=== PATIENT | male | born 1960 | race Caucasian/White ===

== ENCOUNTER 2024-03-19 05:54 | Inpatient (IN) ==
--- NOTE | 2024-02-06 10:08 | PAT Medication Instructions ---
Medication Instructions Date of Service February 06, 2024 Home Medications amlodipine 5 mg tablet 5 mg PO QAM celecoxib 100 mg capsule 100 mg PO QAM evolocumab 140 mg/mL subcutaneous syringe (Repatha Syringe) 140 mg subcut DIRECTED hydrocodone 10 mg-acetaminophen 325 mg tablet 1 tab PO Q6 PRN Pain lisinopril 40 mg tablet 40 mg PO QAM metformin 500 mg tablet 500 mg PO QAM cholecalciferol (vitamin D3) 25 mcg (1,000 unit) tablet (Vitamin D3) 25 mcg PO QAM ASK your surgeon for instructions celecoxib 100 mg capsule 100 mg PO QAM ASK your prescriber and surgeon evolocumab 140 mg/mL subcutaneous syringe (Repatha Syringe) 140 mg subcut DIRECTED DO NOT take the morning of surgery lisinopril 40 mg tablet 40 mg PO QAM metformin 500 mg tablet 500 mg PO QAM cholecalciferol (vitamin D3) 25 mcg (1,000 unit) tablet (Vitamin D3) 25 mcg PO QAM Take morning of surgery With a small sip of water, OTHERWISE NOTHING TO EAT OR DRINK AFTER MIDNIGHT: amlodipine 5 mg tablet 5 mg PO QAM hydrocodone 10 mg-acetaminophen 325 mg tablet 1 tab PO Q6 PRN Pain (if needed) Take evening before surgery hydrocodone 10 mg-acetaminophen 325 mg tablet 1 tab PO Q6 PRN Pain (if needed) Other Notes If you have any questions please call us at [phone] or [phone] or [phone] or [phone]
--- NOTE | 2024-02-12 11:49 | Anesthesiology Consultation ---
Date of Service February 12, 2024 Assessment & Plan (1) Encounter for pre-operative examination: - Check BSG DOS - Infectious disease screening: Per assessment on 02/12/24- No known recent infectious disease contacts or current infectious disease symptoms. - Patient acceptable risk for surgery pending surgeon-ordered PCP preop evaluation (Dr. Kaley Nava/[facility], appt 02/15). Chart Review Chart Review: Patient seen in Pre Admission Testing Teaching & Discussion Pre-Anesthesia Teaching/Discussion Notes: Instructed NPO after midnight before surgery,except medications with 15 cc of water. Medication instructions provided according to the PAT guidelines. History Surgery Operation Date: 03/19/24 07:45 Proposed Procedures p L3-S1 Decompression and Fusion, Spinal Cord Monitoring - Andrew Mata, Height/Weight Height: 5 ft 7.5 in Weight: 89.6 kg Allergies Allergy/AdvReac Type Severity Reaction Status Date / Time No Known Allergies Allergy Verified 02/05/24 10:23 Medications Home Medications Medication Instructions Recorded Confirmed Last Taken amlodipine 5 mg tablet 5 mg PO QAM 12/10/23 02/05/24 12/10/23 celecoxib 100 mg capsule 100 mg PO QAM 12/10/23 02/05/24 Unknown evolocumab 140 mg/mL subcutaneous 140 mg subcut DIRECTED 12/10/23 02/05/24 Unknown syringe (Repatha Syringe) hydrocodone 10 mg-acetaminophen 1 tab PO Q6 PRN Pain 12/10/23 02/05/24 Unknown 325 mg tablet lisinopril 40 mg tablet 40 mg PO QAM 12/10/23 02/05/24 Unknown metformin 500 mg tablet 500 mg PO QAM 12/10/23 02/05/24 Unknown cholecalciferol (vitamin D3) 25 25 mcg PO QAM 02/05/24 02/05/24 Unknown mcg (1,000 unit) tablet (Vitamin D3) Past Medical History Medical History Chronic back pain Hyperlipidemia Hypertension Lumbar radiculopathy Left drop foot, RLE "tingling" (chronic) Osteoarthritis Pre-diabetes Sleep apnea "Mild" Unable to tolerate machine Exercise / Class Metabolic Activity II 4-5 Yardwork/Stairs/Walk up hill (one FS: No CP, no SOB) Past Family History Family History Other No family history of adverse response to anesthesia Past Surgical History Surgical History H/O removal of cyst Multiple History of carpal tunnel release History of cholecystectomy History of colonoscopy S/P colon resection (02/2022) 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 - colon resection with bladder repair (Dr Jackson at [facility]) S/P epidural steroid injection Past Anesthesia History No Hx of Anesthesia Complications and No Family Hx of Anesthesia Complications History of PONV No Hx of PONV and No Hx of Motion Sickness Social History Smoking Status: Former smoker Do You Dip or Chew Tobacco: No (Quit ~3 weeks ago) Smoking End Date: Quit 2011 Hx Alcohol Use: Yes Alcohol type: beer alcohol intake frequency: a few times a week Hx Substance Use: No substance use type: does not use Review of Systems Patient denies chest pain, shortness of breath, dyspnea on exertion, fever, chills, cough, wheezing. Physical Exam Vital Signs BP 113/68 P 77 TEMP 98.2 SP02 97%RA RESP 18 Physical Full cervical extension range of motion. Full TMJ range of motion. TMD > 3.5 finger breaths Mallampati Score II Dentition: missing molars Lungs: clear throughout to auscultation Cardiac: regular rate and rhythm, no murmurs noted Spine: normal Carotid arteries: negative bruit Extremities: no LE edema Short neck Lab Results Anesthesia Preop Results Results Anesthesia Widget: WBC 5.93 K/ul (4.8-10.8) 02/12/24 Hgb 14.1 g/dl (14.0-18.0) 02/12/24 Hct 42.3 % (42.0-52.0) 02/12/24 Plt 173 K/uL (130-400) 02/12/24 Na 140 mmol/L (136-145) 02/12/24 K 4.0 mmol/L (3.5-5.1) 02/12/24 Cl 107 mmol/L (98-107) 02/12/24 CO2 25 mmol/L (21-32) 02/12/24 BUN 16 mg/dl (6-23) 02/12/24 Creat 0.92 mg/dl (0.6-1.4) 02/12/24 Glucose Level 172 mg/dl (70-99(Fasting)) H 02/12/24 PT 10.4 Seconds (9.0-12.0) 02/12/24 PTT 26 Seconds (21-31) 02/12/24 INR 1.0 (0.9-1.1) 02/12/24 HA1c 6.5 % (4.5-5.6) H 02/12/24 Urine Color Yellow 02/12/24 Urine Appearance Clear (Clear) 02/12/24 Urine pH 7.0 (4.5-7.5) 02/12/24 Urine Specific Mentcle 1.022 (1.000-1.030) 02/12/24 Urine Protein Negative (Negative) 02/12/24 Urine Glucose (UA) Negative (Negative) 02/12/24 Urine Ketones Negative (Negative) 02/12/24 Urine Blood Negative (Negative) 02/12/24 Urine Nitrite Negative (Negative) 02/12/24 Urine Bilirubin Negative (Negative) 02/12/24 Urine Urobilinogen Negative (Negative) 02/12/24 Urine Leukocyte Esterase Negative (Negative) 02/12/24 Blood Type O Negative 02/12/24 Antibody Screen NEGATIVE 02/12/24 Testing Electrocardiogram Date: 02/12/24 SR with marked sinus arrhythmia at 68bpm. "Otherwise normal ECG" Chest X-Ray Date: 02/12/24 FINDINGS: The lungs are clear. Cardiomediastinal silhouette is within normal limits. No acute osseous abnormalities. No pleural effusion or pneumothorax. Right upper quadrant cholecystectomy clips are noted. IMPRESSION: No acute cardiopulmonary findings.
[2024-03-19] MEDS ORDERED: LR 15ML/HR IV SCH (06:00)
[2024-03-19] MEDS: LACTATED RINGER'S 1,000 ML IV SCH (06:20)
[2024-03-19] MEDS: LR 60ML/HR IV SCH (06:29)
[2024-03-19] MEDS: CeleBREX 200 MG CAP PO SCH (06:33)
[2024-03-19] MEDS: GABAPENTIN 600 MG DOSE PO SCH (06:33)
[2024-03-19] MEDS: ACETAMINOPHEN 500 MG TAB PO SCH (06:33)
[2024-03-19] MEDS ORDERED: ONDANSETRON INJ 2 MG/ML 2 ML VIAL IV PRN ×2 (06:48→13:23)
[2024-03-19] MEDS ORDERED: HYDROmorphone INJ 1 MG/ML SYRINGE IV PRN ×2 (06:48→13:23)
[2024-03-19] MEDS ORDERED: ATROPINE SULFATE 0.1 MG/ML 10ML SYR IV PRN (06:48)
[2024-03-19] MEDS ORDERED: ePHEDrine sulfate 50 MG/ML AMP IV PRN (06:48)
--- NOTE | 2024-03-19 06:49 | Anesthesiology Consultation ---
Date of Service March 19, 2024 Assessment & Plan Chart Review Chart Review: Acceptable Risk for Surgery Consults Requested none ASA ASA3 Proposed Anesthesia Anesthesia Type: General History Surgery Operation Date: 03/19/24 07:45 Proposed Procedures p L3-S1 Decompression and Fusion, Spinal Cord Monitoring - Andrew Mata DO Height/Weight Height: 5 ft 7.5 in Weight: 87.7 kg Allergies Allergy/AdvReac Type Severity Reaction Status Date / Time No Known Allergies Allergy Verified 03/19/24 06:20 Medications Home Medications Medication Instructions Recorded Confirmed Last Taken amlodipine 5 mg tablet 5 mg PO QAM 12/10/23 03/19/24 03/18/24 06:00 celecoxib 100 mg capsule 100 mg PO QAM 12/10/23 03/19/24 2 Days Ago ~03/17/24 evolocumab 140 mg/mL subcutaneous 140 mg subcut DIRECTED 12/10/23 03/19/24 2 Weeks Ago syringe (Repatha Syringe) ~03/05/24 hydrocodone 10 mg-acetaminophen 1 tab PO Q6 PRN Pain 12/10/23 03/19/24 03/18/24 06:00 325 mg tablet lisinopril 40 mg tablet 40 mg PO QAM 12/10/23 03/19/24 03/18/24 06:00 metformin 500 mg tablet 500 mg PO QAM 12/10/23 03/19/24 03/18/24 06:00 cholecalciferol (vitamin D3) 25 25 mcg PO QAM 02/05/24 03/19/24 03/18/24 06:00 mcg (1,000 unit) tablet (Vitamin D3) Active Medications Generic Name Dose Route Start Last Admin Trade Name Julianq PRN Reason Stop Dose Admin Acetaminophen 1,000 mg 03/19/24 06:00 03/19/24 06:33 Acetaminophen 500 Mg Tab PO 03/19/24 18:00 1,000 mg PREOP DAT Administration Celecoxib 200 mg 03/19/24 06:00 03/19/24 06:33 Celebrex 200 Mg Cap PO 03/19/24 18:00 200 mg PREOP DAT Administration Gabapentin 600 mg 03/19/24 06:00 03/19/24 06:33 Gabapentin 600 Mg Dose PO 03/19/24 18:00 600 mg PREOP DAT Administration Lactated Ringer's 1,000 mls @ 15 mls/hr 03/19/24 06:00 03/19/24 06:20 Lr IV 03/20/24 05:59 15 mls/hr .Q24H DAT Administration Lactated Ringer's 1,000 mls @ 60 mls/hr 03/19/24 06:00 03/19/24 06:29 Lr IV 03/19/24 22:39 Not Given .[id number] DAT NPO Date Last Intake of Fluids: 03/18/24 Time Last Intake of Fluids: 21:00 Date Last Intake of Solids: 03/18/24 Time Last Intake of Solids: 19:00 Past Medical History Medical History Osteoarthritis Chronic back pain Lumbar radiculopathy Left drop foot, RLE "tingling" (chronic) Pre-diabetes Hyperlipidemia Hypertension Sleep apnea "Mild" Unable to tolerate machine Exercise / Class Metabolic Activity II 4-5 Yardwork/Stairs/Walk up hill Past Family History Family History Other No family history of adverse response to anesthesia Past Surgical History Surgical History History of carpal tunnel release H/O removal of cyst Multiple History of cholecystectomy S/P colon resection (02/2022) 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 - colon resection with bladder repair (Dr Jackson at [facility]) History of colonoscopy S/P epidural steroid injection Past Anesthesia History No Hx of Anesthesia Complications History of PONV No Hx of PONV Social History Smoking Status: Never smoker Do You Dip or Chew Tobacco: No (Quit ~3 weeks ago) Smoking End Date: Quit 2011 Hx Alcohol Use: Yes Alcohol type: beer alcohol intake frequency: a few times a week Hx Substance Use: No substance use type: does not use Review of Systems ROS Unobtainable: All systems reviewed & are unremarkable except as noted in Subjective Physical Exam Vital Signs Last Vital Signs Temp 36.7 C 03/19/24 06:08 Pulse 66 03/19/24 06:08 Resp 20 03/19/24 06:08 BP 131/88 03/19/24 06:08 Pulse Ox 97 03/19/24 06:08 O2 Del Method Room Air 03/19/24 06:08 Constitutional + obese chronic back pain ENMT Thyromental Distance: < 3.5 Finger Breadths Mallampati Class: IV Anterior airway Neck + facial hair Respiratory normal respiratory effort Auscultation: lungs clear to auscultation bilaterally Cardiovascular Rate/Rhythm: regular rate Neurologic moves all extremities Testing Laboratory Results 03/19/24 06:33 POC Glucose 151 H Electrocardiogram Date: 02/12/24 SR with marked sinus arrhythmia at 68bpm. "Otherwise normal ECG" Chest X-Ray Date: 02/12/24 FINDINGS: The lungs are clear. Cardiomediastinal silhouette is within normal limits. No acute osseous abnormalities. No pleural effusion or pneumothorax. Right upper quadrant cholecystectomy clips are noted. IMPRESSION: No acute cardiopulmonary findings.
[2024-03-19] MEDS ORDERED: DEXAMETHASONE SOD INJ 4 MG/ML VIAL ONE (06:58)
[2024-03-19] MEDS ORDERED: ONDANSETRON INJ 2 MG/ML 2 ML VIAL ONE (06:58)
[2024-03-19] MEDS ORDERED: GLYCOPYRROLATE 0.2 MG/ML VIAL ONE (06:58)
[2024-03-19] MEDS ORDERED: ROCURONIUM BROMIDE 10 MG/ML 5 ML VIAL IV ONE (06:58)
[2024-03-19] MEDS ORDERED: LIDOCAINE 2% 2 ML VIAL/AMP(20MG/ML) INFIL ONE (06:58)
[2024-03-19] MEDS ORDERED: PROPOFOL IV EMULSION 10 MG/ML 20 ML VIAL IV ONE (06:58)
[2024-03-19] MEDS ORDERED: MIDAZOLAM HCL 1 MG/ML 2ML VIAL ONE (06:59)
[2024-03-19] MEDS ORDERED: fentaNYL citrate PF 100 MCG/2 ML VIAL ONE ×2 (06:59→10:35)
[2024-03-19] MEDS ORDERED: SUGAMMADEX SODIUM 200 MG/2 ML VIAL IV ONE (07:02)
--- NOTE | 2024-03-19 07:43 | History & Physical Bridge Note ---
Date of Service March 19, 2024 History & Physical Bridge Note I have examined the patient, reviewed the History & Physical and in the interval since the performance of the History & Physical I have noted the following changes of clinical significance: no changes noted
--- NOTE | 2024-03-19 07:44 | History & Physical Report ---
Date of Service March 19, 2024 Assessment & Plan (1) Lumbosacral spondylosis with radiculopathy: Plan: L3-S1 decompression and fusion History of Present Illness Chief Complaint: Back and bilateral leg pain Primary Care Provider: Kaley Nava This is a 64-year-old male who presents with chronic persistent back and bilateral leg pain after failing course of nonoperative care is here for surgical intervention. Allergies Allergy/AdvReac Type Severity Reaction Status Date / Time No Known Allergies Allergy Verified 03/19/24 06:20 Home Medications Medication Instructions Recorded Confirmed Type amlodipine 5 mg tablet 5 mg PO QAM 12/10/23 03/19/24 History celecoxib 100 mg capsule 100 mg PO QAM 12/10/23 03/19/24 History evolocumab 140 mg/mL subcutaneous 140 mg subcut DIRECTED 12/10/23 03/19/24 History syringe (Repatha Syringe) hydrocodone 10 mg-acetaminophen 1 tab PO Q6 PRN Pain 12/10/23 03/19/24 History 325 mg tablet lisinopril 40 mg tablet 40 mg PO QAM 12/10/23 03/19/24 History metformin 500 mg tablet 500 mg PO QAM 12/10/23 03/19/24 History cholecalciferol (vitamin D3) 25 25 mcg PO QAM 02/05/24 03/19/24 History mcg (1,000 unit) tablet (Vitamin D3) Past Med/Surg History Problem List (Updated 03/19/24 @ 07:43 by Andrew Mata DO) Lumbosacral spondylosis with radiculopathy Medical History Osteoarthritis Chronic back pain Lumbar radiculopathy Left drop foot, RLE "tingling" (chronic) Pre-diabetes Hyperlipidemia Hypertension Sleep apnea "Mild" Unable to tolerate machine Surgical History History of carpal tunnel release H/O removal of cyst Multiple History of cholecystectomy S/P colon resection (02/2022) 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 - colon resection with bladder repair (Dr Jackson at [facility]) History of colonoscopy S/P epidural steroid injection Family History Other No family history of adverse response to anesthesia Social History Smoking Status: Never smoker Tobacco Type: Smokeless Tobacco (Dip or Chew) Smoking End Date: Quit 2011; Second Hand Exposure: No; Do You Dip or Chew Tobacco: No (Quit ~3 weeks ago); Tobacco Cessation Education Requested by Patient: No Hx Alcohol Use: Yes Alcohol type: beer Hx Substance Use: No Preferred Language: Ukrainian Communication Ability: Effective 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
[2024-03-19] MEDS: ceFAZolin 2000MG 2,000 MG/15 ML SYR IV SCH ×2 (07:51→17:45)
[2024-03-19] MEDS: BUPIVACAINE/EPINEPHRINE 0.25% 1:200,000 30 ML VIAL ONE ×2 (08:17→08:41)
[2024-03-19] MEDS ORDERED: PHENYLEPHRINE 100MCG/ML 5ML SYR ONE ×2 (08:59→09:00)
[2024-03-19] MEDS ORDERED: ePHEDrine sulfate 50 MG/5 ML SYR ONE (08:59)
[2024-03-19] MEDS ORDERED: PHENYLEPHRINE HCL 10 MG/ML VIAL ONE (09:56)
[2024-03-19] MEDS: ceFAZolin 330 MG/ML 1 GM VIAL ONE (10:22)
[2024-03-19] MEDS: FLOSEAL HEMOSTATIC MATRIX 10ML TOP ONE (10:23)
--- NOTE | 2024-03-19 10:44 | Fluoroscopy Report ---
FL lumbar spine 2-3V CLINICAL HISTORY: L3-S1 DECOMPRESSION/FUSION COMPARISON STUDY: MRI lumbar spine 12/10/2023 FLUOROSCOPY TIME: 32.6 seconds FLUOROSCOPY IMAGES: 2 EXPOSURE DOSE: 29.57 mGy FINDINGS: 4 level posterior interbody olivia and screw fusion with discectomy labeled the L3-S1 levels. Note that the images were submitted following completion of the surgery. On the lateral image there i s a partially imaged radiodense structure anterior to the L5-S1 disc space suggestive of a surgical s ponge, not seen on the additional view. IMPRESSION: Fluoroscopic assistance as above. ACT 112: Negative or not required by law. Electronically signed by: Dariel Marin M.D. 03/19/2024 10:42 AM
--- NOTE | 2024-03-19 10:53 | Operative Report ---
Post Operative Report Pre & Post Diagnosis Operation Date: 03/19/24 07:45 Pre-Op Diagnosis: #1 lumbar spondylolisthesis L4-5. #2 lumbar spondylosis with radiculopathy. #3 lumbar spinal stenosis with neurogenic claudication. Post-Op Diagnosis: Same I identified the patient and participated in the time-out.: Yes Procedure Operation Date: 03/19/24 07:45 Actual Procedures #1 lumbar decompression bilateral medial facetectomies and foraminotomies L2-L3, L3-L4, L4-5 and L5-S1. #2 posterior spinal fusion L3-S1. #3 placement posterior segmental instrumentation L3-S1. #4 interbody fusion L3-L4, L4-5 and L5-S1. #5 placement of Spira 13 x 26 mm at L3-L4, 12 x 26 mm x 2 at L4-5, 14 x 26 mm x 2 at L5-S1. #6 placement of locally harvested morselized autograft and posterior gutters per #7 placement infuse collagen sponge combined with Koros in the posterior lateral gutters and os design interbody space. #8 application of versa wrap of the exposed dura. Surgeon Andrew Mata, Garden Center Manager None Estimated Blood Loss 200 Findings Consistent with Post-Op Diagnosis Specimens None Indications This is a 64-year-old male who presents publish diagnosis of failed course of nonoperative care is here for surgical invention. Description of Procedure Patient was met with identified informed consent obtained. Patient was then taken to the operative suite underwent intubation placed in a prone position the Waldo able topical Matteo frame. All bony prominences well-padded eyes inspected to ensure no external pressure placed upon the. This point lumbar spine was prepped and draped in normal sterile fashion. Sharp dissection with the assistance bradycardia form down to and exposing the lamina transverse processes of L3 L4-5 and sacral ala bilaterally. From caudal to cephalad fashion complete laminectomy of L5 was performed noting bilateral pars defect and severe foraminal disease was addressed. Then formed a complete laminectomy of L4 with bilateral medial facetectomies and foraminotomies followed by complete laminectomy of L3 with bilateral male facetectomies and foraminotomies and lastly partial laminectomy L2 with bilateral medial facetectomies addressing all subarticular stenosis. Pedicle screws were then placed in L3-L4-L5 and S1 levels bilaterally with assistance of fluoroscopy in the proper size olivia contoured and placed. By way of transforaminal approach on the left discectomy of L5-S1 was performed. Endplates guided to subcortical bleeding bon e and a 14 x 26 mm spiral cage filled with os designed tapped in position. Then proceeded to the right transforaminal region L5-S1. Again discectomy performed endplates guarded to subcortical bleeding bone and a second 14 x 26 mm Spira cage filled with os designed tapped in position. Then proceeded to the L4-L5 transforaminal region on the right. Again discectomy performed endplates guided to subcortical bleeding bone and a 12 x 26 mm Spira cage filled with os designed tapped into position. Then proceeded to the left transforaminal region at L4-5. A discectomy performed endplates guided to subcortical bleeding bone and a second 12 x 26 mm Spira cage filled with os designed tapped into position. Lastly I proceeded to the left transforaminal region at L3-L4. A complete discectomy was performed. Endplates guided to subcortical bleeding bone and a 13 x 26 mm Spira cage filled with os design tapped into position. The rods then compressed locked in final position bilaterally. The transverse processes of L3-L4-L5 and the sacral ala burred to subcortical bleeding bone. Infuse collagen sponge, with Koros and local autograft placed in posterior lateral gutters. Versa wrap placed over the exposed dura. 15 round MATHEW drain inserted. The incision was then closed with 1 Vicryl the fascia 2-0 Vicryl subcutaneously and 4 Monocryl for final skin closure. Steri-Strips sterile dressing placed. Patient waken taken to PACU in stable condition. Im ordering 20 grams of Triple Siletz Collagen Powder ([facility] [id number]) to treat an incision wound that was caused by a spine procedure. The incision is approximately 2 cm(W) x 4 cm(L) into the joint (D) in size and is a full thickness wound. Triple Siletz collagen comes in 1 gram packets so 20 packets were ordered. Given the size of the wound, with light to moderate exudate I chose to order a 20 day supply. The patient will be provided instructions for proper application of the collagen wound kit. The patient will be asked to apply the collagen powder daily and then cover it with sterile dressings dispensed. Collagen was selected as I expect the collagen to attract monocytes and fibroblasts, act as a sacrificial substrate for MMPs, and ultimately proved a matrix for tissue and vessel growth. The collagen will act as a primary dressing in this scenario. It is medically necessary for proper healing of these wounds to improve bioavailability and contact with each wound surface, this is also to help prevent infection of wounds and promote healing ultimately leading to a better healing outcome and limit the risk of infection. I attest to the content of the Intraoperative Record and any orders documented therein. Any exceptions are noted below.
[2024-03-19] MEDS: fentaNYL citrate PF 100 MCG/2 ML VIAL IV PRN (11:30)
--- NOTE | 2024-03-19 12:22 | Anesthesiology Progress Note ---
Date of Service March 19, 2024 Anesthesia Post Procedure Vital Signs Vital Signs: Temp Pulse Resp BP Pulse Ox O2 Del Method O2 Flow Rate 03/19/24 12:10 99 H 12 133/75 95 Room Air 03/19/24 12:00 85 12 99/74 L 95 Room Air 03/19/24 11:50 115 H 13 120/82 96 Room Air 03/19/24 11:40 99 H 12 121/75 93 Room Air 03/19/24 11:30 102 H 18 132/78 100 Room Air 03/19/24 11:20 100 H 16 107/79 100 Oxymask 3 03/19/24 11:10 114 H 15 153/74 H 100 Oxymask 6 03/19/24 11:01 36.1 C L 81 12 111/54 L 98 Oxymask 6 03/19/24 06:08 36.7 C 66 20 131/88 97 Room Air Pain Intensity Lower Back: Pain Intensity: 5 Transfer of Care Handoff Completed per policy Notes Mental Status: alert / awake / arousable Patient Amnestic to Procedure: Yes Nausea / Vomiting: adequately controlled Pain: adequately controlled Airway Patency, RR, SpO2: stable & adequate BP & HR: stable & adequate Hydration State: stable & adequate Anesthetic Complications: no major complications apparent and Pt Satisfied with anesthetic care Notes: moves all extremities
[2024-03-19] MEDS ORDERED: MAGNESIUM HYDROXIDE SUSP 30 ML UDC PO PRN (13:23)
[2024-03-19] MEDS ORDERED: LORazepam 0.5 MG TAB PO PRN (13:23)
[2024-03-19] MEDS ORDERED: FAMOTIDINE 20 MG TAB PO PRN (13:23)
[2024-03-19] MEDS ORDERED: DO NOT ADMINISTER FLU VACCINE PRN (13:23)
[2024-03-19] MEDS ORDERED: ONDANSETRON 4 MG OD TAB PO PRN (13:23)
[2024-03-19] MEDS ORDERED: METOCLOPRAMIDE HCL INJ 5 MG/ML 2 ML VIAL IV PRN (13:23)
[2024-03-19] MEDS ORDERED: KETOROLAC 30 MG/ML VIAL IV PRN (13:23)
[2024-03-19] MEDS ORDERED: SOD PHOSPHATE/SOD BIPHOSPHATE ENEMA 132 ML BTL PR PRN (13:23)
[2024-03-19] MEDS ORDERED: PROMETHAZINE 12.5 MG/50.5 ML BAG IV PRN (13:23)
[2024-03-19] MEDS ORDERED: ALUMINUM/MAGNESIUM SUSP 30 ML UDC PO PRN (13:23)
[2024-03-19] MEDS ORDERED: PHARMACY GLYCEMIC MGMT CONSULT PRN (13:23)
[2024-03-19] MEDS ORDERED: bisacodyL 10 MG SUPP PR PRN (13:23)
[2024-03-19] MEDS ORDERED: DO NOT ADMINISTER PNEUMOCOCCAL VACCINE PRN (13:23)
[2024-03-19] MEDS ORDERED: diphenhydrAMINE Capsule 25 MG CAP PO PRN (13:23)
[2024-03-19] MEDS ORDERED: NALOXONE HCL 0.4 MG/1 ML VIAL/CARP IV PRN (13:23)
[2024-03-19] MEDS ORDERED: traMADol HCL 50 MG TABLET PO PRN (13:23)
[2024-03-19] MEDS ORDERED: hydrOXYzine HCl 25 MG TAB PO PRN (13:23)
[2024-03-19] MEDS ORDERED: HYDROmorphone INJ 0.5 MG/0.5 ML SYR IV PRN (13:23)
[2024-03-19] MEDS ORDERED: ACETAMINOPHEN 1,000 MG/100 ML VIAL IV PRN (13:23)
[2024-03-19] MEDS ORDERED: LORazepam 2 MG/1 ML VIAL IV PRN ×2 (13:23→15:32)
[2024-03-19] MEDS ORDERED: DEXTROSE 50% 50 ML SYRINGE IV PRN (14:15)
[2024-03-19] MEDS ORDERED: CARBOHYDRATES FOR HYPOGLYCEMIA PO PRN (14:15)
[2024-03-19] MEDS ORDERED: GLUCOSE 10 TAB/TUBE PO PRN (14:15)
[2024-03-19] MEDS ORDERED: GLUCOSE 40% GEL 15 GM TUBE PO PRN (14:15)
[2024-03-19] MEDS ORDERED: GLUCAGON FOR INJ 1 MG VIAL SQ PRN (14:15)
--- NOTE | 2024-03-19 14:21 | Pharmacy Report ---
Pharmacy Glycemic Short Note 2 - Date of Service March 19, 2024 - Glycemic Short BSG Results (Last 24 hours): 03/19/24 03/19/24 06:33 11:04 POC Glucose 151 H 208 H OUTPATIENT ANTIDIABETIC REGIMEN: * Metformin 500mg po daily HbA1c: 6.5% on 02/12/24 ASSESSMENT: * 64 year old male admitted today for spinal decompression and fusion. He is a type 2 diabetic who is well controlled outpatient on only an oral agent. Pharmacy has been consulted post op for glycemic control. * Preop BSG was 151mg/dL and postop BSG was 208mg/dL. He did receive dexamethasone preop. Lantus 20 units x 1 has been ordered for this afternoon and a weight based bolus insulin scale with a stress of 2 was started. PLAN FOR INPATIENT GLYCEMIC CONTROL: * Hold outpatient oral diabetes medications * Basal insulin * Lantus 20 units SQ x 1 today * Bolus insulin * NovoLog per scale ACHS or Q6hrs while NPO * Goal Range: Low 120 mg/dL - High 150 mg/dL * Correction Factor: 25 mg/dL/unit * Nutritional / Prandial insulin per carb ratio of 1 unit per 9 grams CHO consumed
[2024-03-19] MEDS: INSULIN ASPART PER UNIT CHARGE SC SCH (14:37)
[2024-03-19] MEDS: oxyCODONE HCL IR 5 MG TAB (IMMEDIATE RELEASE) PO PRN (14:37)
[2024-03-19] MEDS: LANTUS PER UNIT CHARGE SC ONE (14:38)
--- NOTE | 2024-03-19 14:51 | Hospitalist Consultation ---
Date of Consultation March 19, 2024 Assessment & Plan (1) Lumbosacral spondylosis with radiculopathy: (2) Hyperlipidemia: (3) Hypertension: (4) Sleep apnea: (5) Pre-diabetes: Plan Lumbar Radiculopathy - POD # 0, L2-S1 decompression/fusion - Pain management, bowel regimen and DVT ppx per the primary team - PT/OT consults, pt is planning on outpatient therapy - Follow am CBC to monitor for acute blood loss HTN HLD - Continue home medications including lisinopril, amlodipine Sleep Apnea - Pt reports as mild, does not wear CPAP Diabetes - last A1C 6.5 on 02/15/24, previously prediabetic - Continue metformin daily - Discussion regarding weight loss and activity level was held at length at bedside with his jennifer present. Alcohol abuse - Drink 6-8 beers daily at baseline, mixes liquor drinks including bloody seema x multiple drinks - last drink was on [place] - Will place on AWSS, he has no intention to quite drinking so would not start on gabapentin taper - Discussed thiamine, folic acid and MVI daily at baseline and he is agreeable to this. DVT ppx: teds, scds Lines: PIV x 1 FEN/GI: HH/DM diet, advance as tolerated, CODE: Full Dispo: From home, likely to remain in the hospital x 1-2 days A total of 45 minutes were spent with greater than 50% of that time face to face with the patient, personally reviewing all current laboratories, imaging studies, past medication reconciliation, outpatient chart review, and discussion with specialists to collaborate care for the patient with attending. Please see attending documentation for corrections and/or additions. Supervising Physician Co-Signing Physician Notes Attending Addendum: Case reviewed with the advanced practitioner. I have personally performed a history and physical examination on the patient. I have reviewed the advanced practitioner's documentation on the date of service referenced in note, and I agree with, and take responsibility for the plan of care. please refer to her notes for full details patient seen and examined, records reviewed by myself as well s/p L2-S1 decompression/fusion - stable overall Alcoholism - Alcohol Withdrawal Protocol with PRN Lorazepam reassess in AM may need Gabapentin taper monitor closely other diagnoses and plan of care as per advanced practitioner's notes Devyn Hernandez MD History of Present Illness Reason for Consultation: Medical management Requesting Physician: Dr. Mata Attending Physician: Andrew Mata, DO History of Present Illness This is a 64 yo M with PMHx of Prediabetes, HTN, HLD, mild sleep apnea and does not wear CPAP, osteoarthritis, chronic back pain and lumbar radiculoathy who presented today for elective Lumbar decompression fusion by Dr. aMta involving medial facetectomies and foraminotomies L2-L3, L3-L4, L4-5 and L5-S1. Patient is doing well at this point. His fiance is present with him at bedside. He reports that his pain is mild, "feels like he has been run over by a truck" after having surgery this morning. He denies any peripheral numbness, can move his toes, and legs without difficulty. He admits to having history of claustrophobia and states that he feels worse whenever the table blankets and SCDs are all on at the same time. He reports that he typically drinks 6-8 beers per day, and on he had at least this much beer along with mixing bloody Seema drinks all through the day. We discussed alcohol reduction and he has no desire to quit drinking. He states that he has previously lost weight without cutting his alcohol and cutting other things such as bread, pasta, baked goods. We discussed nutrient dense foods versus empty calories as associated with beer. Family member present at bedside supports reduction of alcohol intake however the patient does not seem interested at this point. We also discussed wound healing, adequate protein intake, and improvement with reduction of alcohol. Hearing that he is diabetic is a new information today, previously he was prediabetic, but he is taking metformin 500 mg daily. Allergies Allergy/AdvReac Type Severity Reaction Status Date / Time No Known Allergies Allergy Verified 03/19/24 06:20 Home Medications Medication Instructions Recorded Confirmed Type amlodipine 5 mg tablet 5 mg PO QAM 12/10/23 03/19/24 History celecoxib 100 mg capsule 100 mg PO QAM 12/10/23 03/19/24 History evolocumab 140 mg/mL subcutaneous 140 mg subcut DIRECTED 12/10/23 03/19/24 History syringe (Repatha Syringe) hydrocodone 10 mg-acetaminophen 1 tab PO Q6 PRN Pain 12/10/23 03/19/24 History 325 mg tablet lisinopril 40 mg tablet 40 mg PO QAM 12/10/23 03/19/24 History metformin 500 mg tablet 500 mg PO QAM 12/10/23 03/19/24 History cholecalciferol (vitamin D3) 25 25 mcg PO QAM 02/05/24 03/19/24 History mcg (1,000 unit) tablet (Vitamin D3) oxycodone 5 mg tablet 5 mg PO Q6H PRN pain #30 tabs 03/19/24 03/19/24 Rx tramadol 50 mg tablet 50 mg PO Q6H PRN pain, moderate 03/19/24 03/19/24 Rx #30 tabs Patient History Medical History Osteoarthritis Chronic back pain Lumbar radiculopathy Left drop foot, RLE "tingling" (chronic) Pre-diabetes Hyperlipidemia Hypertension Sleep apnea "Mild" Unable to tolerate machine Surgical History History of carpal tunnel release H/O removal of cyst Multiple History of cholecystectomy S/P colon resection (02/2022) 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 - colon resection with bladder repair (Dr Jackson at [facility]) History of colonoscopy S/P epidural steroid injection Family History Other No family history of adverse response to anesthesia Social History Smoking Status: Never smoker Tobacco Type: Smokeless Tobacco (Dip or Chew) Smoking End Date: Quit 2011; Second Hand Exposure: No; Do You Dip or Chew Tobacco: No (Quit ~3 weeks ago); Tobacco Cessation Education Requested by Patient: No Hx Alcohol Use: Yes Alcohol type: beer Hx Substance Use: No Preferred Language: [place] Communication Ability: Effective Counseling Psychologist Required: No Beliefs That Will Affect Care: None Current Living Situation: Significant Other Other Information That Helps Us Care for You: No Feels Safe at Home: Yes Safety Concerns: Feels Safe At This Time Assistive Devices: None Review of Systems Review of Systems: Constitutional: No fever, sweats or chills Eyes: No diplopia, no worsening or blurred vision ENT: normal hearing, no trouble swallowing Respiratory: No cough, sputum, dyspnea at rest or on exertion Cardiovascular: No chest pain, tightness or palpitations Abdomen: No pain, nausea, vomiting, diarrhea or constipation Back: Status post lumbar spine decompression surgery, soreness Musculoskeletal: No joint pain, calf pain, swelling Neurologic: No weakness, numbness/tingling, + previous left-sided foot drop slightly improved status post surgery Psychiatric: No anxiety or depression Skin: No rash or itch Physical Exam Physical Exam: General: awake, alert, no apparent distress, white male Head: Normocephalic, atraumatic ENT: PERRL, EOMI, no pharyngeal exudate, mucous membranes moist Chest: Clear to auscultation, on room air, no adventitious breath sounds Cardiac: Regular rate and rhythm, no murmur, no JVD, normal peripheral pulses, good capillary refill Abdominal: NABS x 4 quadrants, soft, nondistended, nontender to palpation, no rebound or guarding Back: Dressing C/D/I, MATHEW drain with serosanginous bloody outs Extremities: Normal inspection, no peripheral edema or erythema, calfs nontender to palpation Psych: Normal mood and affect Neuro: AAO x 3, strength intact bilaterally and rated 5/5, no motor deficits, speech is clear, no peripheral sensory deficits Results & Data Results & Data Vital Signs (Past 12 Hours) Vital Signs Temp Pulse Pulse Resp BP Pulse Ox O2 Del Method 03/19/24 14:31 36.4 C L 115 H 16 146/82 H 97 Room Air 03/19/24 14:00 36.8 C 99 H 16 139/84 97 Room Air 03/19/24 13:30 36.4 C L 109 H 16 128/90 96 Room Air 03/19/24 13:00 99 H 20 124/83 97 Room Air 03/19/24 12:45 113 H 16 118/86 96 Room Air 03/19/24 12:30 110 H 16 127/85 95 Room Air 03/19/24 12:20 36.4 C L 105 H 13 107/73 96 Room Air 03/19/24 12:10 99 H 12 133/75 95 Room Air 03/19/24 12:00 85 12 99/74 L 95 Room Air 03/19/24 11:50 115 H 13 120/82 96 Room Air 03/19/24 11:40 99 H 12 121/75 93 Room Air 03/19/24 11:30 102 H 18 132/78 100 Room Air 03/19/24 11:20 100 H 16 107/79 100 Oxymask 03/19/24 11:10 114 H 15 153/74 H 100 Oxymask 03/19/24 11:01 36.1 C L 81 12 111/54 L 98 Oxymask 03/19/24 06:08 36.7 C 66 20 131/88 97 Room Air O2 Flow Rate 03/19/24 14:31 03/19/24 14:00 03/19/24 13:30 03/19/24 13:00 03/19/24 12:45 03/19/24 12:30 03/19/24 12:20 03/19/24 12:10 03/19/24 12:00 03/19/24 11:50 03/19/24 11:40 03/19/24 11:30 03/19/24 11:20 3 03/19/24 11:10 6 03/19/24 11:01 6 03/19/24 06:08 Laboratory Results 03/19/24 03/19/24 03/19/24 14:26 11:04 06:33 POC Glucose 255 H 208 H 151 H Blood Type Antibody Screen Crossmatch 03/19/24 06:26 POC Glucose Blood Type O Negative Antibody Screen NEGATIVE Crossmatch See Detail
[2024-03-19] MEDS: FOLIC ACID 1 MG TAB PO SCH (17:50)
[2024-03-19] MEDS: THIAMINE HCL 100 MG TAB PO SCH (17:51)
[2024-03-19] MEDS: DOCUSATE SODIUM/SENNA 50/8.6MG TAB PO SCH (20:19)
[2024-03-19] MEDS: COUGH DROP (SUGAR FREE) LOZ 24 LOZ/1 BOX BUCCAL ONE (23:53)
[2024-03-20] MEDS: POLYETHYLENE (MIRALAX) 17 GM PACK PO SCH (05:35)
[2024-03-20 07:05] LABS: Basophils # (auto) 0.01 K/uL (0.00-0.20); Basophils % (auto) 0.1 %; Eosinophils # (auto) 0.01 K/uL (0.00-0.50); Eosinophils % (auto) 0.1 %; Hematocrit (blood only) 36.5 % (42.0-52.0); Hemoglobin 11.7 g/dl (14.0-18.0); Immature Granulocytes # (auto) 0.06 K/uL (0.01-0.20); Immature Granulocytes % (auto) 0.5 %; Lymphocytes # (auto) 1.42 K/uL (1.20-3.40); Lymphocytes % (auto) 11.9 %; Mean Corpuscular Hemoglobin 29.4 pg (25.0-34.0); Mean Corpuscular Hgb Conc 32.1 g/dL (32.0-36.0); Mean Corpuscular Volume 91.7 fL (80.0-100.0); Mean Platelet Volume 10.3 fL (9.4-12.4); Monocytes # (auto) 1.12 K/uL (0.11-0.59); Monocytes % (auto) 9.4 %; Neutrophils # (auto) 9.28 K/uL (1.40-6.50); Platelet Count 186 K/uL (130-400); RDW Coefficient of Variation 11.8 % (11.5-14.5); RDW Standard Deviation 39.6 fL (36.4-46.3); Red Blood Count 3.98 M/uL (4.70-6.10)
[2024-03-20 07:25] LABS: BUN Creatinine Ratio 13.4 (10-20); Calcium 8.7 mg/dl (8.6-10.3); Creatinine Clr Calc Pharmacy 83.2 ml/min; Potassium 4.2 mmol/L (3.5-5.1)
[2024-03-20] MEDS: LANTUS PER UNIT CHARGE SC SCH (08:41)
[2024-03-20] MEDS: dexAMETHasone 6 MG in SYRINGE 0 ML IV SCH (08:45)
--- NOTE | 2024-03-20 09:38 | Orthopedic Progress Note ---
Date of Service March 20, 2024 Assessment & Plan (1) Lumbosacral spondylosis with radiculopathy: Plan: At this time we will continue physical therapy monitor his MATHEW output anticipate discharge home Friday. Admission and Anticipated Discharge Date Admission Date: March 19, 2024 Subjective Back pain controlled leg symptoms markedly improved. Patient is been up and ambulating without difficulty. Physical Exam Physical Exam: On exam patient is now in bed. He is comfortable. Excellent strength testing. Results & Data Vital Signs (Past 12 Hours) Vital Signs Temp Pulse Resp BP Pulse Ox O2 Del Method 03/20/24 07:42 36.7 C 92 H 16 126/83 99 Room Air 03/20/24 03:28 36.4 C L 92 H 18 119/78 97 Room Air 03/20/24 00:00 36.6 C 85 20 131/85 96 Room Air
[2024-03-20] MEDS: MULTIVITAMIN TAB PO SCH (09:52)
[2024-03-20] MEDS: lisinopril 40 MG TAB PO SCH (09:52)
[2024-03-20] MEDS: CHOLECALCIFEROL 25 MCG (1000 UNITS) TAB PO SCH (09:52)
[2024-03-20] MEDS: amLODIPine BESYLATE 5 MG TAB PO SCH (09:52)
--- NOTE | 2024-03-20 16:32 | Hospitalist Progress Note ---
Date of Service March 20, 2024 Assessment & Plan (1) Lumbosacral spondylosis with radiculopathy: (2) Hyperlipidemia: (3) Hypertension: (4) Sleep apnea: (5) Pre-diabetes: Plan Lumbar Radiculopathy Postoperative acute blood loss anemia - S/P L2-S1 decompression/fusion by Dr. Mata on 03/19/2024 - Pain management, bowel regimen and DVT ppx per the primary team - PT/OT consults Continue local wound care Status parameter Bowel regimen Toprol constipation No indication for blood transfusion currently Monitor CBC Leukocytosis Likely secondary to Decadron Monitor HTN HLD - Continue home medications including lisinopril, amlodipine Sleep Apnea - Pt reports as mild, does not wear CPAP DM II - last A1C 6.5 on 02/15/24, previously prediabetic - Hold metformin -Continue insulin while hospitalized Alcohol abuse - Drink 6-8 beers daily at baseline, mixes liquor drinks including bloody seema x multiple drinks - last drink was on [place] - Will place on AW[place], he has no intention to quite drinking so would not start on gabapentin taper - Discussed thiamine, folic acid and MVI daily at baseline and he is agreeable to this. -Currently no signs of withdrawal DVT Px: Teds, Scds CODE STATUS: Full Code Disposition: Expected discharge home when stable Admission and Anticipated Discharge Date Admission Date: March 19, 2024 Subjective Patient is seen and examined at bedside States having significant back pain with movement but otherwise no pain at rest + Flatus today Denies any dyspnea, chest pain, nausea, vomiting, abdominal pain Family at bedside Review of Systems Review of Systems: All systems reviewed & are unremarkable except as noted in Subjective Physical Exam Physical Exam: Physical Exam: Vitals signs as noted above General Appearance:Moderately built and nourished, no apparent distress Head: normocephalic, Atraumatic Eyes: normal inspection, EOMI Neck: supple, Trachea midline Respiratory/Chest: Normal breath sounds, CTA, No accessory muscle use Cardiovascular: S1, S2, No murmur Abdomen/GI:Soft, Non tender, Bowel sounds present Back:Surgical site in dressing,+drain Extremities/Musculoskeletal:normal inspection, no edema Neurologic/Psych:AAOX3, grossly no focal neurological deficits Skin: normal color, warm Results & Data Results & Data Vital Signs (Past 12 Hours) Vital Signs Temp Pulse Resp BP Pulse Ox O2 Del Method 03/20/24 15:33 36.5 C 93 H 18 115/73 96 Room Air 03/20/24 09:50 100 H 17 136/89 96 Room Air 03/20/24 07:42 36.7 C 92 H 16 126/83 99 Room Air Laboratory Results Short CBC 03/20/24 Range/Units 06:26 WBC 11.90 H (4.8-10.8) K/ul Hgb 11.7 L (14.0-18.0) g/dl Hct 36.5 L (42.0-52.0) % Plt Count 186 (130-400) K/uL [facility] 03/20/24 06:26 Sodium 140 Potassium 4.2 Chloride 106 Carbon Dioxide 25 BUN 13 Creatinine 0.97 Glucose 195 H Calcium 8.7
[2024-03-21 06:41] LABS: Hematocrit (blood only) 32.2 % (42.0-52.0); Hemoglobin 10.6 g/dl (14.0-18.0); Mean Corpuscular Hemoglobin 29.8 pg (25.0-34.0); Mean Corpuscular Hgb Conc 32.9 g/dL (32.0-36.0); Mean Corpuscular Volume 90.4 fL (80.0-100.0); Mean Platelet Volume 9.8 fL (9.4-12.4); Platelet Count 167 K/uL (130-400); RDW Coefficient of Variation 11.9 % (11.5-14.5); RDW Standard Deviation 39.2 fL (36.4-46.3); Red Blood Count 3.56 M/uL (4.70-6.10); White Blood Count 10.96 K/ul (4.8-10.8)
[2024-03-21 07:01] LABS: BUN Creatinine Ratio 16.9 (10-20); Calcium 8.6 mg/dl (8.6-10.3); Creatinine Clr Calc Pharmacy 97.2 ml/min; Magnesium 2.1 mg/dl (1.7-2.4); Potassium 4.1 mmol/L (3.5-5.1)
--- NOTE | 2024-03-21 07:47 | Orthopedic Progress Note ---
Date of Service March 21, 2024 Assessment & Plan (1) Lumbosacral spondylosis with radiculopathy: Plan: Patient is doing well postoperative #2. Will continue with GI DVT prophylaxis and pain control measures. He is darien continue to ambulate. We are going to maintain his MATHEW drain and anticipate discharge to home tomorrow. Admission and Anticipated Discharge Date Admission Date: March 19, 2024 Subjective Patient was seen bedside in room 362. He is doing well. His pain is well- controlled. He is tolerating p.o. but is not yet had a bowel movement. He is passing gas. He is urinating without difficulties. He has lower back pain around the incision when he first goes to stand up. Once he is up he does okay. He walked over 200 feet yesterday with a rolling walker. He denies any other numbness, tingling, or paresthesias. Physical Exam Physical Exam: On exam he is alert and oriented. His strength and sensation are both intact his abdomen soft nontender his calves are supple and nontender. His MATHEW drain is intact and is placed out 40 cc, 30 cc, and 80 cc in the last 3 measurements. His hematocrit today was 32.2 and hemoglobin was 10.6. Results & Data Vital Signs (Past 12 Hours) Vital Signs Temp Pulse Resp BP Pulse Ox O2 Del Method 03/21/24 07:29 36.9 C 80 18 105/59 L 97 Room Air 03/21/24 00:25 36.4 C L 100 H 18 123/75 98 Room Air
--- NOTE | 2024-03-21 15:59 | Hospitalist Progress Note ---
Date of Service March 21, 2024 Assessment & Plan (1) Lumbosacral spondylosis with radiculopathy: (2) Hyperlipidemia: (3) Hypertension: (4) Sleep apnea: (5) Pre-diabetes: Plan Lumbar Radiculopathy Postoperative acute blood loss anemia - S/P L2-S1 decompression/fusion by Dr. Mata on 03/19/2024 - Pain management, bowel regimen and DVT ppx per the primary team - PT/OT consults Continue local wound care Continue incentive spirometer Bowel regimen Toprol constipation No indication for blood transfusion currently Monitor CBC Hemoglobin 10.6 today Likely discharge tomorrow per Ortho Leukocytosis Likely secondary to Decadron Monitor HTN HLD - Continue home medications including lisinopril, amlodipine Sleep Apnea - Pt reports as mild, does not wear CPAP DM II - last A1C 6.5 on 02/15/24, previously prediabetic - Hold metformin -Continue insulin while hospitalized Alcohol abuse - Drink 6-8 beers daily at baseline, mixes liquor drinks including bloody seema x multiple drinks - last drink was on [place] - Will place on AW[place], he has no intention to quite drinking so would not start on gabapentin taper - Discussed thiamine, folic acid and MVI daily at baseline and he is agreeable to this. -Currently no signs of withdrawal DVT Px: Teds, Scds CODE STATUS: Full Code Disposition: Expected discharge home when stable Admission and Anticipated Discharge Date Admission Date: March 19, 2024 Subjective Patient is seen and examined at bedside Back pain at surgical site is slowly improving No bowel movement today No new complaints Denies any dyspnea, chest pain, nausea, vomiting, abdominal pain Has been ambulating in hallway Review of Systems Review of Systems: All systems reviewed & are unremarkable except as noted in Subjective Physical Exam Physical Exam: Physical Exam: Vitals signs as noted above General Appearance:Moderately built and nourished, no apparent distress Head: normocephalic, Atraumatic Eyes: normal inspection, EOMI Neck: supple, Trachea midline Respiratory/Chest: Normal breath sounds, CTA, No accessory muscle use Cardiovascular: S1, S2, No murmur Abdomen/GI:Soft, Non tender, Bowel sounds present Back:Surgical site in dressing,+drain Extremities/Musculoskeletal:normal inspection, no edema Neurologic/Psych:AAOX3, grossly no focal neurological deficits Skin: normal color, warm Results & Data Results & Data Vital Signs (Past 12 Hours) Vital Signs Temp Pulse Resp BP Pulse Ox O2 Del Method 03/21/24 15:52 36.8 C 73 16 97/61 L 97 Room Air 03/21/24 09:00 118/72 03/21/24 07:29 36.9 C 80 18 105/59 L 97 Room Air Laboratory Results Short CBC 03/21/24 Range/Units 06:19 WBC 10.96 H (4.8-10.8) K/ul Hgb 10.6 L (14.0-18.0) g/dl Hct 32.2 L (42.0-52.0) % Plt Count 167 (130-400) K/uL [facility] 03/21/24 06:19 Sodium 139 Potassium 4.1 Chloride 105 Carbon Dioxide 29 BUN 14 Creatinine 0.83 Glucose 126 H Calcium 8.6
[2024-03-21] MEDS: COUGH DROP (SUGAR FREE) LOZ 24 LOZ/1 BOX BUCCAL STA (16:32)
[2024-03-22 07:34] VITALS: BP 111/74; RESP 18; TEMP 97.9; O2SAT 99
[2024-03-22 09:27] LABS: Hemoglobin 10.6 g/dl (14.0-18.0); Mean Corpuscular Hemoglobin 29.8 pg (25.0-34.0); Mean Corpuscular Hgb Conc 33.1 g/dL (32.0-36.0); Mean Corpuscular Volume 89.9 fL (80.0-100.0); Platelet Count 180 K/uL (130-400); RDW Coefficient of Variation 11.9 % (11.5-14.5); RDW Standard Deviation 39.4 fL (36.4-46.3); Red Blood Count 3.56 M/uL (4.70-6.10); White Blood Count 9.54 K/ul (4.8-10.8)
[2024-03-22 09:52] LABS: Calcium 8.9 mg/dl (8.6-10.3); Creatinine Clr Calc Pharmacy 90.6 ml/min; Potassium 3.9 mmol/L (3.5-5.1)
--- NOTE | 2024-03-22 10:42 | Discharge Summary ---
Date of Service March 22, 2024 Admission HPI Per Admitting Provider This is a 64-year-old male who presents with chronic persistent back and bilateral leg pain after failing course of nonoperative care is here for surgical intervention. Principal Diagnosis Multilevel lumbar spondylosis with radiculopathy Discharge Data Allergies Allergy/AdvReac Type Severity Reaction Status Date / Time No Known Allergies Allergy Verified 03/19/24 06:20 Consultations 03/19/24 13:23 Consult Hospitalist Routine Procedures Performed Operation Date: 03/19/24 07:45 Actual Procedures p L3-S1 Decompression and Fusion(Not Applicable) - Andrew Mata DO Ordered Studies 03/19/24 07:45 FL lumbar spine 2-3V Routine Hospital Course (1) Lumbosacral spondylosis with radiculopathy: Patient underwent lumbar decompression fusion trial as well as seeing the orthopedic for postoperative. Postop he progressed appropriately. Marked above his back and leg pain. MATHEW drain decreasing. Extra strength testing. Subsidy discharged home. Discharge orders instructions from the chart for further review. Total Time Total Time Spent Total Time Spent (In Minutes): 20 minutes Discharge Plan Discharge Items Patient Disposition: Home - Self-Care Reason For Visit: POSTOP Discharge Diagnosis: Lumbar spondylosis with radiculopathy Activity: As commented below Non-emergency contact: Primary Care Provider Call non-emergency contact if: you have any medication questions Follow-up/Referrals: Kaley Nava M.D. [Primary Care Provider] - Diet: Regular Addtl Attending Provider Instructions: ACTIVITY RECOMMENDATIONS: SELF CARE INSTRUCTIONS AFTER THORACIC/LUMBAR FUSIONS 1. You may walk to your tolerance. It is good exercise for your legs and back. Expect some back and intermittent leg aches and pains. 2. You may perform "counter-top" level activities (make a sandwich, karmen with a project, etc.). 3. No bending or lifting of more than 10 pounds or back twisting of any nature (roll like a log when turning in bed). 4. You may ride in a car for 20-30 minutes at a time. No driving until after your first visit with your doctor. 5. Frequent changes of position and restricting sitting to 30 minutes at a time will help limit the amount of back spasms and stiffness you may experience. 6. You may discontinue the use of ambulatory aids (cane, crutches, etc.) once your strength and confidence allow. 7. You may substance abuse prevention coordinator the shower and let water strike your incision when you arrive home at least once daily. Do not take a tub bath, sit in a hot tub or go into a swimming pool until after your first recheck in the office. 8. You may resume previous diet. SPECIAL CARE INSTRUCTIONS: VERY IMPORTANT TO READ AND REVIEW A. Your surgical incision has been closed with a cosmetic suture under the skin that will dissolve in about 6 weeks. In 14 days, you can use a pair of clean scissors and cut the suture that is left outside of the skin at the ends of your incision. 1. The small skin tapes can be removed 7 days after surgery if they have not fallen off by that point. 2. You may keep the wound open to air as much as possible to promote healing after post-op day number 5 unless told otherwise by your doctor. 3. If you think the wound looks like it is becoming infected (redness or worsening drainage) and/or you are experiencing fever, chill or worsening back pain and muscle spasms, contact the office so that we may evaluate you as soon as possible. B. Complications are uncommon, but please contact us if you have any signs or symptoms of: 1. wound infection (fever higher than 102.5 degrees F, redness, separation of wound, drainage, or increasing pain from the incision) 2. blood clots in legs (pain, swelling, redness and warmth in legs) 3. urinary tract infection (fever higher than 102.5 degrees F, burning upon urination or increased frequency of urination) 4. nerve problems (inability to walk on your toes or heels, numbness, loss of bowel or bladder control) 5. any other symptoms that concern you C. Please call the office at if you have any concerns or questions about your operation or recovery. D. No smoking! Smoking drastically decreases the chance of a solid fusion. E. Do not take any anti-inflammatory medications (Indocin, Advil, Motrin, Aspirin, Naprosyn, etc.) as these may inhibit the chance of a solid fusion. Tylenol is okay to take for pain. MANAGING PAIN AFTER SPINAL SURGERY 1. Narcotic medication is intended for short-term use and will be provided for surgical pain. Surgical pain usually lasts for a period of 4-6 weeks. Narcotic medication includes Percocet, Vicodin, Darvocet, Tylenol #3 or Lortab. 2. Longer-term pain is more appropriately treated with non-narcotic medication such as Tylenol ES. 3. Muscle spasm is not appropriately treated with narcotics. Muscle relaxers such as Soma, Flexeril or Skelaxin can be used along with Tylenol ES. 4. Remember that we all live with some "aches and pains". This is not unusual or uncommon after an injury or as we get older. a. Back pain is expected and may include muscle spasms for 4 to 6 weeks after surgery. The pain should gradually improve. If the pain worsens for no apparent reason, please contact the office. b. Intermittent leg pain may also be experienced and should not be concerned about unless it worsens for no apparent reason. If so, please contact the office. 5. We will provide appropriate medication within the normal guidelines of their prescribed use. We will also be very cautious and aware of potential abuse and extended duration of patients' medication needs. a. Pain medications are for your comfort and to assist with sleep and rest so that the tissue can heal. They are not provided in order to return to normal activity and should not be used through the day. To do so or worsening pain at night can result from ongoing tissue damage and dev elopment of tolerance to the prescribed medicine. 6. Please allow 2-3 days to process refills. Prescriptions will not be mailed but must be picked up at the office. FOLLOW UP VISIT: Keep your scheduled follow-up appointment. Any questions, please call the office at . Pending Studies at Discharge: No Stand-Alone Forms: My [facility] [employer], Smoking Cessation Medications and DC Order Prescriptions: New tramadol 50 mg tablet 50 mg PO Q6H PRN (Reason: pain, moderate) Qty: 30 0RF oxycodone 5 mg tablet 5 mg PO Q6H PRN (Reason: pain) Qty: 30 0RF Continued amlodipine 5 mg tablet 5 mg PO QAM celecoxib 100 mg capsule 100 mg PO QAM hydrocodone-acetaminophen 10-325 mg tablet 1 tab PO Q6 PRN (Reason: Pain) lisinopril 40 mg tablet 40 mg PO QAM metformin 500 mg tablet 500 mg PO QAM Repatha Syringe 140 mg/mL syringe 140 mg SUBCUT DIRECTED cholecalciferol (vitamin D3) [Vitamin D3] 25 mcg (1,000 unit) Tablet 25 mcg PO QAM Discharge Orders: Discharge Order (Routine); Ordered 03/22/24 Ordered By: Andrew Mata Admission Data Admit Date/Time: 03/19/24 13:37 Attending Provider: Andrew Mata Admit Provider: Andrew Mata Primary Care Provider: Kaley Nava Other Providers: Delaney Corbett
[2024-03-22] MEDS: ACETAMINOPHEN 500 MG TAB PO PRN (12:15)
--- NOTE | 2024-03-22 12:37 | Hospitalist Progress Note ---
Date of Service March 22, 2024 Assessment & Plan (1) Lumbosacral spondylosis with radiculopathy: (2) Hyperlipidemia: (3) Hypertension: (4) Sleep apnea: (5) Pre-diabetes: Plan Lumbar Radiculopathy Postoperative acute blood loss anemia - S/P L2-S1 decompression/fusion by Dr. Mata on 03/19/2024 - Pain management, bowel regimen and DVT ppx per the primary team - PT/OT consults Continue local wound care Continue incentive spirometer Bowel regimen Toprol constipation No indication for blood transfusion currently Monitor CBC Hemoglobin 10.6 today Blood levels remain stable Had bowel movements Advised to follow-up with PCP on discharge Leukocytosis Likely secondary to Decadron Leukocytosis resolved Monitor monitor HTN HLD - Continue home medications including lisinopril, amlodipine Sleep Apnea - Pt reports as mild, does not wear CPAP DM II - last A1C 6.5 on 02/15/24, previously prediabetic - Hold metformin -Continue insulin while hospitalized Alcohol abuse - Drink 6-8 beers daily at baseline, mixes liquor drinks including bloody seema x multiple drinks - last drink was on [place] on [employer], he has no intention to quite drinking so would not start on gabapentin taper - Discussed thiamine, folic acid and MVI daily at baseline and he is agreeable to this. -Currently no signs of withdrawal DVT Px: Teds, Scds CODE STATUS: Full Code Disposition: Expected discharge home when stable Admission and Anticipated Discharge Date Admission Date: March 19, 2024 Subjective Patient is seen and examined at bedside Back pain much improved No new complaints Had bowel movement Family at bedside Drain to be removed today prior to discharge Denies any dyspnea, chest pain, nausea, vomiting, abdominal pain Review of Systems Review of Systems: All systems reviewed & are unremarkable except as noted in Subjective Physical Exam Physical Exam: Physical Exam: Vitals signs as noted above General Appearance:Moderately built and nourished, no apparent distress Head: normocephalic, Atraumatic Eyes: normal inspection, EOMI Neck: supple, Trachea midline Respiratory/Chest: Normal breath sounds, CTA, No accessory muscle use Cardiovascular: S1, S2, No murmur Abdomen/GI:Soft, Non tender, Bowel sounds present Back:Surgical site in dressing,+drain Extremities/Musculoskeletal:normal inspection, no edema Neurologic/Psych:AAOX3, grossly no focal neurological deficits Skin: normal color, warm Results & Data Results & Data Vital Signs (Past 12 Hours) Vital Signs Temp Pulse Resp BP Pulse Ox O2 Del Method 03/22/24 07:33 36.6 C 80 18 111/74 99 Room Air 03/22/24 07:20 Room Air Laboratory Results Short CBC 03/22/24 Range/Units 08:52 WBC 9.54 (4.8-10.8) K/ul Hgb 10.6 L (14.0-18.0) g/dl Hct 32.0 L (42.0-52.0) % Plt Count 180 (130-400) K/uL BMP 03/22/24 08:52 Sodium 137 Potassium 3.9 Chloride 101 Carbon Dioxide 29 BUN 16 Creatinine 0.89 Glucose 185 H Calcium 8.9
[2024-03-22 13:03] VITALS: PULSE 99
== END 2024-03-22 13:15 | disposition home or self-care (01) | DRG 428 ==
LOC: ASU 05:54 → 3W 13:37
DX: F10.10 Alcohol abuse, uncomplicated; Z79.1 Long term (current) use of non-steroidal anti-inflammatories (NSAID); E11.9 Type 2 diabetes mellitus without complications; Z79.899 Other long term (current) drug therapy; M47.26 Other spondylosis with radiculopathy, lumbar region; K59.00 Constipation, unspecified; Z79.84 Long term (current) use of oral hypoglycemic drugs; I10 Essential (primary) hypertension; M19.90 Unspecified osteoarthritis, unspecified site; M48.062 Spinal stenosis, lumbar region with neurogenic claudication; G47.30 Sleep apnea, unspecified; E78.5 Hyperlipidemia, unspecified; M43.16 Spondylolisthesis, lumbar region